=== PATIENT | male | born 1995 | race Caucasian/White ===

== ENCOUNTER 2017-06-17 14:23 | Emergency (ER) | payer OTHER ==
[~2017-06-17] VITALS: Ht 175.3 cm; Wt 69.5 kg
[2017-06-17 14:38] VITALS: TEMP 36.9; Ht 175.3 cm; Wt 69.5 kg
--- NOTE | 2017-06-17 15:33 | DIAGNOSTIC IMAGING REPORT ---
HEAD WITHOUT CONTRAST (CT) CT DOSE: 886.22 mGy.cm HISTORY: Mental status change eval for bleed TECHNIQUE: Multiaxial CT images of the head were performed without the use of intravenous contrast. A dose lowering technique was utilized adhering to the principles of ALARA. Comparison: None. Findings: The paranasal sinuses and mastoid air cells are clear. The calvarium and skull base are intact. The ventricles and sulci are within normal limits. There is no mass, hematoma, midline shift, or acute infarct. Impression: No acute intracranial abnormality. The above report was generated using voice recognition software. It may contain grammatical, syntax or spelling errors. Electronically signed by: Evelio Hayward M.D. 06/17/2017 3:32 PM Dictated Date/Time: 06/17/2017 3:31 PM
--- NOTE | 2017-06-17 15:35 | DIAGNOSTIC IMAGING REPORT ---
CERVICAL SPINE CT CT DOSE: HISTORY: Fall. Upper extremity paresthesias. TECHNIQUE: Multiaxial CT images of the cervical spine were performed and reformatted in the sagittal and coronal plane without the use of contrast. A dose lowering technique was utilized adhering to the principles of ALARA. COMPARISON: None. FINDINGS: No fractures. No subluxation. Prevertebral soft tissues and the C1-C2 interval are intact. No pneumothorax. A 5 mm right thyroid nodule. IMPRESSION: No fractures within the cervical spine. Electronically signed by: Ciro Rebolledo M.D. 06/17/2017 3:34 PM Dictated Date/Time: 06/17/2017 3:28 PM
[2017-06-17 15:56] VITALS: BP 146/95; PULSE 89; O2SAT 99
--- NOTE | 2017-06-17 21:45 | EMERGENCY ROOM VISIT NOTE ---
History Report prepared by Esequiel: Joshua Steele Under the Supervision of: Dr. Ricki Rose M.D. First contact with patient: 14:44 Chief Complaint: HEAD INJURY (MINOR) Stated Complaint: CONCUSSION, TINGLING IN FINGERS History of Present Illness The patient is a 22 year old male who presents to the Emergency Room with complaints of an improving tingling sensation that started yesterday. The patient states that he was drinking and celebrating his 22st birthday two days ago when he had 11 drinks. The patient states that after drinking he was still conscious but is not able to remember most of the night. He reports that he vomited at the bar and went home. The patient states that he went to get into bed when he hit the back of his head on his desk. He states that he woke up the next day with a hangover and a headache. The patient states that he also woke up with a numbness and tingling sensation in his right index, long, and ring finger. He states that today his headache resolved, but admits that the tingling sensation is still mildly present, although improving. The patient reports that there is also mild tingling in his thumb and pinky finger. He states that his head is painful only to the touch and he is experiencing neck soreness. His headache is otherwise better. The patient states that he went to [facility] for his symptoms, but was told to present to the ED. He denies a current headache, weakness, numbness in arms and legs, vision issues, and any other medical issues. Source of History: patient Onset: yesterday Position: other (right index, long, and ring finger) Quality: numbness (pins and needles) Timing: other (improving) Associated Symptoms: No headache (resolved headache that began yesterday), No weakness Review of Systems See HPI for pertinent positives & negatives. A total of 10 systems reviewed and were otherwise negative. Past Medical & Surgical Medical Problems: (1) Concussion Family History Cancer Diabetes mellitus Heart disease Hypertension Social History Smoking Status: Never Smoker Smokeless Tobacco Use: No Alcohol Use: occasionally Drug Use: none Marital Status: single Housing Status: lives with roommate Occupation Status: [employer] student Current/Historical Medications No Active Prescriptions or Reported Meds Allergies Coded Allergies: No Known Allergies (Unverified , 06/17/17) Physical Exam Vital Signs Date Time Temp Pulse Resp B/P (MAP) Pulse Ox O2 Delivery O2 Flow Rate FiO2 06/17/17 15:56 89 18 146/95 99 Room Air 06/17/17 14:48 16 06/17/17 14:38 36.9 93 20 134/85 100 Room Air Physical Exam Constitutional: Vital signs reviewed. Eyes: Pupils are equal round reactive to light. Conjunctiva are noninjected. ENT: Pharynx is clear without erythema or exudate. Mucous membranes are moist. Neck supple without meningeal signs. No midline tenderness to the cervical spine. Respiratory: Clear to auscultation bilaterally. Breath sounds are equal bilaterally. Cardiovascular: Regular rate and rhythm. No rubs or gallops. GI: Soft, nondistended and nontender. Bowel sounds are present. Musculoskeletal: No peripheral edema. Integumentary: No cyanosis. Neurological: The patient is awake and alert. Cranial nerves II-XII are intact. Motor is 5 out of 5 all extremities. Sensation is intact to light touch all extremities but dysesthesia to the right second third and fourth fingers circumferentially. Normal speech. No pronator drift. Normal gait. Psychiatric: Normal affect. Medical Decision & Procedures ER Provider Diagnostic Interpretation: CT results as stated below per my review and radiologist interpretation. HEAD WITHOUT CONTRAST (CT) CT DOSE: 886.22 mGy.cm HISTORY: Mental status change eval for bleed TECHNIQUE: Multiaxial CT images of the head were performed without the use of intravenous contrast. A dose lowering technique was utilized adhering to the principles of ALARA. Comparison: None. Findings: The paranasal sinuses and mastoid air cells are clear. The calvarium and skull base are intact. The ventricles and sulci are within normal limits. There is no mass, hematoma, midline shift, or acute infarct. Impression: No acute intracranial abnormality. The above report was generated using voice recognition software. It may contain grammatical, syntax or spelling errors. Electronically signed by: Evelio Hayward M.D. 06/17/2017 3:32 PM Dictated Date/Time: 06/17/2017 3:[address] DOSE: HISTORY: Fall. Upper extremity paresthesias. TECHNIQUE: Multiaxial CT images of the cervical spine were performed and reformatted in the sagittal and coronal plane without the use of contrast. A dose lowering technique was utilized adhering to the principles of ALARA. COMPARISON: None. FINDINGS: No fractures. No subluxation. Prevertebral soft tissues and the C1-C2 interval are intact. No pneumothorax. A 5 mm right thyroid nodule. IMPRESSION: No fractures within the cervical spine. Electronically signed by: Ciro Rebolledo M.D. 06/17/2017 3:34 PM Dictated Date/Time: 06/17/2017 3:28 PM ED Course 1442: The patient was evaluated in room A12A. A complete history and physical exam was performed. 1544: I reevaluated the patient and discussed test results and head injury precautions. I advised that he follow up with [facility] and neurology. The patient is ready for discharge. Medical Decision This is a 22-year-old male who presents with head injury and tingling to the right hand. Differential diagnosis includes intracranial hemorrhage, concussion , contusion, skull fracture, cervical injury, paresthesias, brachial nerve injury. I did perform a limited focused review of portions of the patient's old chart on the electronic medical record. The patient has had no recent pertinent visits to this hospital. I did evaluate the patient as noted above. The patient is presenting with a head injury 2 days ago after drinking heavily. He now presents with paresthesias to his right hand over the second to fourth digits. He does state that it is improving but still present. He is neurologically intact other than some dysesthesia to the second and fourth digits of the right hand. He has no motor deficits. He had no symptoms prior to his injury. I did order a CT of the head and cervical spine. I did review the images myself as well as the radiology report as described above. There is no evidence of cervical fracture or any intracranial abnormality. I did discuss the test results with the patient. I did recommend he follow with neurology for further evaluation. He was advised to return should he have worsening symptoms or develop any new neurologic symptoms as described below. Patient was discharged in good condition. Medication Reconcilliation Current Medication List: was personally reviewed by me Blood Pressure Screening Patient's blood pressure: Elevated blood pressure Blood pressure disposition: Elevated BP felt to be situational Impression Primary Impression: Acute head injury Additional Impression: Right hand paresthesia Scribe Attestation The scribe's documentation has been prepared under my direct and personally reviewed by me in its entirety. I confirm that the note above accurately reflects all work, treatment, procedures, and medical decision making performed by me. Departure Information Dispostion Home / Self-Care Prescriptions No Active Prescriptions or Reported Meds Referrals No Doctor, Assigned (PCP) Forms HOME CARE DOCUMENTATION FORM, IMPORTANT VISIT INFORMATION Patient Instructions ED Head Injury Closed, ED Paraesthesias, My [facility] Additional Instructions You have been examined and treated today on an emergency basis only. This is not a substitute for, or an effort to provide, complete comprehensive medical care. It is impossible to recognize and treat all injuries or illnesses in a single emergency department visit. It is therefore important that you follow up closely with [facility] and Dr. Forbes of neurology. Call as soon as possible for an appointment. Return for worsening symptoms or if you develop fever, numbness or weakness on one side of your body, difficulties with your speech or walking, or any other concerning symptoms. Problem Qualifiers Primary Impression: Acute head injury Encounter type: initial encounter Qualified Codes: S09.90XA - Unspecified injury of head, initial encounter
== END 2017-06-17 16:03 | disposition home or self-care (01) ==
LOC: C.EDB 14:25 → C.EDA 16:03
DX: S09.90XA Unspecified injury of head, initial encounter (principal); R20.9 Unspecified disturbances of skin sensation; W22.09XA Striking against other stationary object, initial encounter; Z87.820 Personal history of traumatic brain injury; Z83.3 Family history of diabetes mellitus; Z82.49 Family history of ischemic heart disease and other diseases of the circulatory system